=== PATIENT | female | born 2000 | race Caucasian/White ===

== ENCOUNTER 2023-05-15 04:49 | Emergency (ER) | payer SELFPAY ==
[2023-05-15] MEDS ORDERED: Acetaminophen 500 MG TAB ONE (05:34)
== END 2023-05-15 07:12 | disposition left against medical advice (07) ==
LOC: ERS 04:49
DX: Z53.29 Procedure and treatment not carried out because of patient's decision for other reasons (principal)
CPT/HCPCS: 71045